=== PATIENT | male | born 1980 | race Caucasian/White ===

== ENCOUNTER 2022-08-31 23:17 | Inpatient (IN) | payer OTHER ==
[~2022-08-31] VITALS: Ht 175.3 cm; Wt 93.3 kg
--- NOTE | 2022-09-01 01:38 | NUR ---
DR COLLADO AT BEDSIDE. AWARE PT HEART RATE IS >100.
[2022-09-01 01:49] LABS: BASOPHILS ABSOLUTE AUTO 0.08 K/mm3 (0.00-0.23); BASOPHILS PERCENT AUTO 1 % (0-2); EOSINOPHILS ABSOLUTE AUTO 0.13 K/mm3 (0.00-0.68); EOSINOPHILS PERCENT AUTO 1 % (0-6); Hematocrit 21.9 % (37.0-53.0); Hemoglobin 6.9 g/dL (13.5-17.5); IMMATURE GRAN ABSOLUTE AUTO 0.08 K/mm3 (0.00-0.10); IMMATURE GRAN PERCENT AUTO 1 % (0-1); LYMPHOCYTES PERCENT AUTO 14 % (21-46); MONOCYTES ABSOLUTE AUTO 1.49 K/mm3 (0.16-1.47); MONOCYTES PERCENT AUTO 14 % (4-13); Mean Corpuscular HGB 28.2 pg (26.0-34.0); Mean Corpuscular HGB Conc 31.5 g/dL (31.5-36.5); Mean Corpuscular Volume 89 fL (80-100); NEUTROPHILS ABSOLUTE AUTO 7.39 K/mm3 (1.96-9.15); NEUTROPHILS PERCENT AUTO 69 % (41-73); Platelet Count 51 K/mm3 (150-400); RDW Coefficient Variation 16.6 % (11.7-14.2); RDW Standard Deviation 53.7 fL (35.1-46.3); Red Blood Cell Count 2.45 M/mm3 (4.30-5.90); White Blood Cell Count 10.67 K/mm3 (4.00-11.30)
[2022-09-01 01:55] LABS: Albumin, Blood 2.9 g/dL (3.4-5.0); Albumin/Globulin Ratio 0.7 (0.8-1.8); Bilirubin, Total 1.6 mg/dL (0.1-1.0); Bun/Creatinine Ratio 21.9 (12.0-20.0); Calcium, Blood 8.8 mg/dL (8.5-10.1); Creatinine, Blood 0.46 mg/dL (0.60-1.20); Globulin, Blood 4.3 g/dL (2.2-4.0); Potassium, Blood 4.8 mmol/L (3.5-5.5); Total Protein, Blood 7.2 g/dL (6.4-8.2)
[2022-09-01 05:13] LABS: Hematocrit 21.2 % (37.0-53.0); Hemoglobin 6.7 g/dL (13.5-17.5)
[2022-09-01 06:06] LABS: Albumin, Blood 2.9 g/dL (3.4-5.0); Albumin/Globulin Ratio 0.7 (0.8-1.8); Bilirubin, Total 1.7 mg/dL (0.1-1.0); Bun/Creatinine Ratio 25.8 (12.0-20.0); Calcium, Blood 8.6 mg/dL (8.5-10.1); Creatinine, Blood 0.43 mg/dL (0.60-1.20); Globulin, Blood 4.3 g/dL (2.2-4.0); Potassium, Blood 5.1 mmol/L (3.5-5.5); Total Protein, Blood 7.2 g/dL (6.4-8.2)
--- NOTE | 2022-09-01 08:00 | NUR ---
Received report from Abiola VEGA. Patient is drowsy and anxious about being in bed. He is alert and able to communicate slowly with some garbled speech, but understandable. He was on 2L O2 while sleeping as he desats, but in on RA and sats upper 90%. Patient has three IV's: 18ga LAC and is infusing Protonix at 10ml, 20ga RFA NS TKO, and 22ga RH infusing Octreotide at 25 ml/hr. He was able to use urinal in time and urinated in bed and we changed linen and cleaned him up.
[2022-09-01 09:24] LABS: Hematocrit 22.8 % (37.0-53.0); Hemoglobin 7.4 g/dL (13.5-17.5)
--- NOTE | 2022-09-01 10:00 | NUR ---
Talked with Dr Rosario and he started to give another PRBC. Patient able to take PO med with sips of water. He has been getting more anxious and Dr Robertson wants to continue Ativan. He has tried getting out of bed more frequently. No changes to Octreotide and Protonix, or NS TKO. He has used urinal and had 600 ml's light edwina urine.
--- NOTE | 2022-09-01 12:00 | NUR ---
Have had to medicate with ativan two more times with little success. He has bed alarm on as he continues to want out of bed. Placed order for Nicotine patch placed on left shoulder. He had another 600 ml's of light edwina in urinal. Going to medicate again with 4 mg ativan for agitation and will call for possible Precedex. No changes to gtt's.
--- NOTE | 2022-09-01 13:30 | NUR ---
Patients PRBC still infusing. He is getting US RUQ. He has been resting since last dose of Ativan. He remains on RA while sleeping. VSS. No changes to gtt's. Charge Nurse talked with Dr Ortega and received order for Precedex low dose.
--- NOTE | 2022-09-01 16:00 | NUR ---
Patient has been resting. 3rd PRBC finished around 1504. Started Precedex at 0.3 mcg/kg/hr, Protonix at 10 ml/hr and Octreotide at 25 ml/hr. He remains on RA while sleeping. Mother went to [facility]. Dr Shannon sánchez to see patient and getb update.
[2022-09-01] MEDS ORDERED: OMEP20ER PO (16:34)
[2022-09-01] MEDS ORDERED: OLAN20 MM (16:34)
[2022-09-01] MEDS ORDERED: EUTHYROX50 MCG PO (16:35)
[2022-09-01] MEDS ORDERED: TRAZ50 PO (16:36)
[2022-09-01] MEDS ORDERED: Buspirone HCl15 MG PO (16:38)
[2022-09-01 17:07] LABS: Hematocrit 24.8 % (37.0-53.0)
--- NOTE | 2022-09-01 17:51 | NUR ---
Patient has been trying to get out of bed for the last hour and has to be re-directed about every 10 minutes until he fwell back to sleep. I have been titrating Precedex up for affect and curretly at 0.5 mcg/kg/hr, Protonix at 10 ml/hr, Octreotide 25 ml/hr. He has been needing help with urinal and has had a total of 1700 ml's out. His three IV's remain patent. He remains on Ra and sats in the mid to upper 90%'s..
--- NOTE | 2022-09-01 20:30 | NUR ---
ASSUMPTION OF CARE NOTE PT IS SEDATED WITH PRECEDEX AND IS RELAXING IN BED. PRECEDEX TITRATED DOWN TO 0.3MCG/KG/HR FROM 0.5 IN ORDER TO SEE IF PT COULD TOLERATE PO MEDS. MAINTAINS SPO2 >94% ON RA WITH NO SOB OR DYSPNEA NOTED. PT RESPONDS TO VERBAL AND TACTILE STIMULI. BP'S ARE A LITTLE SOFT, BUT STABLE WITH MAP REMAINING ABOVE 70. PT IN SR IN THE 80'S. CIWA <8 WITH MINIMAL AGITATION NOTED WHEN PROVIDING CARE. NADN AT THIS TIME.
[2022-09-02 03:55] LABS: BASOPHILS ABSOLUTE AUTO 0.04 K/mm3 (0.00-0.23); BASOPHILS PERCENT AUTO 1 % (0-2); EOSINOPHILS ABSOLUTE AUTO 0.22 K/mm3 (0.00-0.68); EOSINOPHILS PERCENT AUTO 3 % (0-6); Hematocrit 25.1 % (37.0-53.0); IMMATURE GRAN ABSOLUTE AUTO 0.04 K/mm3 (0.00-0.10); IMMATURE GRAN PERCENT AUTO 1 % (0-1); LYMPHOCYTES ABSOLUTE AUTO 1.52 K/mm3 (0.84-5.20); LYMPHOCYTES PERCENT AUTO 23 % (21-46); MONOCYTES ABSOLUTE AUTO 0.77 K/mm3 (0.16-1.47); MONOCYTES PERCENT AUTO 12 % (4-13); Mean Corpuscular HGB 27.8 pg (26.0-34.0); Mean Corpuscular HGB Conc 31.9 g/dL (31.5-36.5); Mean Corpuscular Volume 87 fL (80-100); Mean Platelet Volume 11.4 fL (9.1-12.4); NEUTROPHILS ABSOLUTE AUTO 4.02 K/mm3 (1.96-9.15); NEUTROPHILS PERCENT AUTO 61 % (41-73); RDW Coefficient Variation 17.5 % (11.7-14.2); RDW Standard Deviation 55.1 fL (35.1-46.3); Red Blood Cell Count 2.88 M/mm3 (4.30-5.90); White Blood Cell Count 6.61 K/mm3 (4.00-11.30)
[2022-09-02 03:59] LABS: Platelet Count 44 K/mm3 (150-400)
[2022-09-02 04:11] LABS: Albumin, Blood 2.8 g/dL (3.4-5.0); Albumin/Globulin Ratio 0.7 (0.8-1.8); Bilirubin, Total 1.3 mg/dL (0.1-1.0); Bun/Creatinine Ratio 21.2 (12.0-20.0); Calcium, Blood 8.3 mg/dL (8.5-10.1); Creatinine, Blood 0.47 mg/dL (0.60-1.20); Globulin, Blood 3.9 g/dL (2.2-4.0); Potassium, Blood 3.7 mmol/L (3.5-5.5); Total Protein, Blood 6.7 g/dL (6.4-8.2)
--- NOTE | 2022-09-02 06:28 | NUR ---
SHIFT SUMMARY PT REMAINED LETHARGIC T/O MOST OF THE SHIFT EVEN WITH PRECEDEX OFF AT 2300 ON 09/01/22. RESPONDS TO VERBAL AND PAIN STIMULI. CIWA'S HAVE BEEN CONSISTANTLY <8. PT BECAME MORE ALERT/AGITATED AROUND 0400 WHERE HE RECEIVED LIBRIUM WELL ATIVAN. SEE CIWA ASSESSMENTS FOR MORE DETAILS. BP AND IMPROVED SINCE PRECEDEX HAS BEEN STOPPED AND HR INCREASED TO ST/100'S. PT PLACED ON 2L NC TO MAINTAIN SPO2 >92%, NO SOB OR DYSPNEA NOTED. NO SIGNS OF ACTIVE BLEEDING NOTED T/O THE SHIFT, PLT COUNT WAS LOW WITH AM LABS. NOTIFIED AND ORDERED TO CONTINUE MONITORING THE PT. NADN VSS T/O THE SHIFT
--- NOTE | 2022-09-02 08:00 | NUR ---
Received report from Aron VEGA. Patient was resting at report time and currently has been trying to climb out of bed. He is alert to self and re-directs poorly. His goal is to go home and not stay here. He has three IV's: 22ga RH infusing Protonix at 10 ml/hr, 20ga LAC infusing Octreotide at 25 ml/hr and Precedex started at 0.3 mcg/kg/hr. He used urinal with assist and had 450 ml/hr. He is agitated and wants out of bed, but has hard time jusrt sitting up and is exhausted and tremulous. He has O2 off and sats >90% and will remain off. Mother called and is on her way in.
--- NOTE | 2022-09-02 09:30 | NUR ---
Patient tolerated meds with sip of water. medicated with librium and ativan with little succes and remains climbing out of bed. When in room with other patient bed alrm went off and he was standing at bedside very undstable and had to hold him up. He remains on RA and sats >90%. He re-directs poorly and just keeps trying to get out of bed. Increased Precedex to 0.5 mcg/kg/min. Dr Rosario stated will be by later to assess patient. Patient has showed no signs of bleeding.
--- NOTE | 2022-09-02 11:30 | NUR ---
Patient has had increased agitation and received 18 mg of ativan with one hour, placed in [place] and bilateral soft wrist restraints. I have called Dr Robertson twice and updated her on condition. He still shows no signs of bleeding. Precedex increased to 0.7 mcg/kg/hr at 1054 with little success. He remains on Ra and sats >90%. Patient continues to not re-direct.
--- NOTE | 2022-09-02 13:30 | NUR ---
Awaiting dr to do face to face. Increased Precedex to 1.0, patient continues to putt at restraints but tiring and intermitent resting and awaking and cursing as he is unable to get out of bed. Have re-directed multiple times and boosting as he slides down. Checked skin and circulation. CN and is removed all restraints and changed linen and reboosted. He remains on RA and sats >90%
--- NOTE | 2022-09-02 15:30 | NUR ---
Patient had [address] bilateral upper arms, Right hand IV was slowly working so pulled. His Protonix, Octreotide and Precedex remains at previous settings. Placed condom cath and CN replaced LATASHA PowerGlide as was kinked. Patient still arouses agitated.
--- NOTE | 2022-09-02 18:00 | NUR ---
Patient on RA and sats >90%. Patient is in christiano and bilateral soft wrist restraints. Placed two condom caths and he has pulled loyd as he is still all over bed. He is alert to self only and does not currently re-direct as he is in and out. Dr Rodriguez came by and did face to face and gave permission to titrate precedex tp 1.4 mcg/kg/hr, see nurse notify. He has bilateral upper arm PowerGlide, 20ga-10 in LATASHA and 20ga -8 in PAOLA, dressing have been changes since insertion. He has protonix at 8mg/hr, Octreotide at 50mcg/hr and Precedex at 1.0 mcg/kg/hr. Dr Rosario has been by and has deferred tx until patient stable.
--- NOTE | 2022-09-02 21:27 | NUR ---
CARE ASSUMPTION PT IS LYING IN BED RESTRAINED BY BOT ARCHANA VEST AND SBW RESTRAINTS. PT SLEEPING BUT EASILY AROUSABLE TO SPEECH, PT VERY AGITATED WHEN AWOKEN. PRECEDEX RUNNING PER ORDER. PT DIAPHORETIC. VSS AND O2 SATS >92% ON M AIR.
[2022-09-03 04:19] LABS: BASOPHILS ABSOLUTE AUTO 0.05 K/mm3 (0.00-0.23); BASOPHILS PERCENT AUTO 1 % (0-2); EOSINOPHILS ABSOLUTE AUTO 0.22 K/mm3 (0.00-0.68); EOSINOPHILS PERCENT AUTO 3 % (0-6); Hematocrit 26.7 % (37.0-53.0); Hemoglobin 8.4 g/dL (13.5-17.5); IMMATURE GRAN ABSOLUTE AUTO 0.06 K/mm3 (0.00-0.10); IMMATURE GRAN PERCENT AUTO 1 % (0-1); LYMPHOCYTES ABSOLUTE AUTO 1.49 K/mm3 (0.84-5.20); LYMPHOCYTES PERCENT AUTO 22 % (21-46); MONOCYTES ABSOLUTE AUTO 0.64 K/mm3 (0.16-1.47); MONOCYTES PERCENT AUTO 9 % (4-13); Mean Corpuscular HGB Conc 31.5 g/dL (31.5-36.5); Mean Corpuscular Volume 89 fL (80-100); NEUTROPHILS ABSOLUTE AUTO 4.38 K/mm3 (1.96-9.15); NEUTROPHILS PERCENT AUTO 64 % (41-73); RDW Coefficient Variation 17.7 % (11.7-14.2); RDW Standard Deviation 55.7 fL (35.1-46.3); White Blood Cell Count 6.84 K/mm3 (4.00-11.30)
[2022-09-03 04:23] LABS: Platelet Count 46 K/mm3 (150-400)
[2022-09-03 04:35] LABS: Albumin, Blood 2.8 g/dL (3.4-5.0); Albumin/Globulin Ratio 0.7 (0.8-1.8); Bilirubin, Total 1.1 mg/dL (0.1-1.0); Bun/Creatinine Ratio 15.2 (12.0-20.0); Calcium, Blood 8.5 mg/dL (8.5-10.1); Creatinine, Blood 0.46 mg/dL (0.60-1.20); Globulin, Blood 4.2 g/dL (2.2-4.0)
--- NOTE | 2022-09-03 06:37 | NUR ---
FACILITIES MAINTENANCE ENGINEER SUMMARY PT REMAINS VERY CONFUSED AND AGITATED THIS SHIFT. PT AROUSES W SOUND OR TOUCH TO WHICH HE BEGINS HITTING HIS FIST AGAINST THE BED RAIL AND DEMANDING TO BE RELEASED. PRECEDEX RUNNING THIS SHIFT BEING TITRATED TO 1.2 FRO 1.0 THE PT BECAME MORE AGITATED IN THE MIDDLE OF THE NIGHT. CIWA'S 11-15 THIS SHIFT. BP WNL AND STABLE. TELE SHOWNG SB/SR 55-65 THIS SHIFT. O2 SATS >92% ON RM AIR THIS SHIFT. PT HAD NO S/S OF BLEEDING THIS SHIFT AND HAD NO BM THIS SHIFT. PT AFEBRILE THIS SHIFT. WILL REPORT TO ONCOMING RN.
--- NOTE | 2022-09-03 07:15 | NUR ---
Assumed care of pt at 0700. Report received from Myranda VEGA and Anthony VEGA. Pt responsive to verbal stimulus. Follows commands, although inconsistently. Drowsy. Receiving precedex at 1.2 mcg/kg/hr. Visible beads of sweat on forehead. Pt calm but occasionally pulls against restraints. SpO2 90% or greater.
[2022-09-03 10:48] LABS: Phosphorus, Blood 2.9 mg/dL (2.5-4.9)
--- NOTE | 2022-09-03 11:40 | NUR ---
Dr Nathan in to see patient. Discussed that pt's lungs are sounding coarse. No ativan given today. No major changes to pt's LOC or CIWA. Per Dr Nathan, hold off on using ativan and being titrating down precedex.
--- NOTE | 2022-09-03 15:19 | NUR ---
Dr Nathan in to see patient. Discussed that patient has been off precedex for several hours. Plan to give pt librium and restart home meds
--- NOTE | 2022-09-03 18:58 | NUR ---
SUMMARY Neuro: Pt was off precedex for several hours today and experienced stable withdrawal. Pt alert, oriented to self. Able to answer questions and follow commands. Polite, using "please" and "thank you". This RN performed bedside swallow eval and patient passed without signs of aspiration. Trialed patient without soft wrist restraints, educating on reason for use and conditions that would lead to reapplication. He pulled out an IV, pulled out condom catheter, and removed monitoring equipment within 10 minutes of restraint removal. Pt started to escalate around 1600 despite PO librium, zyprexa, and buspirone. Call placed to Dr Nathan who advised restarting precedex and holding off on ativan for now. Despite restarting precedex and titrating up to max dose, pt was still high CIWA and ativan was given. 4 mg had minimal effect on CIWA. Call placed to Dr Nathan to update. Provider ordered 260 mg phenobarbital and a follow up dose of 130 if needed. Pt was calm immediately after the dose of 260 mg. Musc: Pt moves independently in bed despite restraints and often throws legs over side of bed in attempt to get out of bed independently. Total care for oral care. Cardiac: SB-SR to monitor with rate ranging from 55-85 depending on pt's level of sedation with precedex. BP stable. GI: No BM this shift. Abd large, distended. Hypoactive BT. : Incontinent voids, attempting to manage with condom catheter. Skin: Unremarkable Psychosocial: As mentioned in neuro. Alcohol withdrawal persists. Pt's mother in to see patient this morning before driving back to [employer]. Update provided this AM and then this RN assisted pt to call his mother before resedation.
[2022-09-04 03:59] LABS: BASOPHILS ABSOLUTE AUTO 0.06 K/mm3 (0.00-0.23); BASOPHILS PERCENT AUTO 1 % (0-2); EOSINOPHILS ABSOLUTE AUTO 0.25 K/mm3 (0.00-0.68); EOSINOPHILS PERCENT AUTO 3 % (0-6); Hematocrit 27.7 % (37.0-53.0); Hemoglobin 8.4 g/dL (13.5-17.5); IMMATURE GRAN ABSOLUTE AUTO 0.08 K/mm3 (0.00-0.10); IMMATURE GRAN PERCENT AUTO 1 % (0-1); LYMPHOCYTES ABSOLUTE AUTO 1.53 K/mm3 (0.84-5.20); LYMPHOCYTES PERCENT AUTO 20 % (21-46); MONOCYTES ABSOLUTE AUTO 0.66 K/mm3 (0.16-1.47); MONOCYTES PERCENT AUTO 9 % (4-13); Mean Corpuscular HGB 27.8 pg (26.0-34.0); Mean Corpuscular HGB Conc 30.3 g/dL (31.5-36.5); Mean Corpuscular Volume 92 fL (80-100); NEUTROPHILS ABSOLUTE AUTO 5.13 K/mm3 (1.96-9.15); NEUTROPHILS PERCENT AUTO 67 % (41-73); NRBC ABSOLUTE 0.02 K/mm3 (0.00-0.02); NRBC Auto 0.3 /100 WBC (0.0-0.2); RDW Coefficient Variation 18.8 % (11.7-14.2); RDW Standard Deviation 57.1 fL (35.1-46.3); Red Blood Cell Count 3.02 M/mm3 (4.30-5.90); White Blood Cell Count 7.71 K/mm3 (4.00-11.30)
[2022-09-04 04:07] LABS: Mean Platelet Volume 13.3 fL (9.1-12.4); Platelet Count 49 K/mm3 (150-400)
--- NOTE | 2022-09-04 06:35 | NUR ---
SHIFT SUMMARY: PT. DID WELL OVERNIGHT, ALL VS WERE WNL THROUGHOUT THE NIGHT AND PT. SEEMED TO BE RESTING WELL. PT. IS STILL ON 1.4 OF PRECEDEX BUT IS EASY TO ROUSE AND BECAME MUCH MORE ORIENTED THIS MORNING. PT. ABLE TO HAVE A SIMPLE CONVERSATION AND IS COOPERATIVE WITH CARE. PT. RESTING WITH CALL LIGHT IN REACH.
--- NOTE | 2022-09-04 10:45 | NUR ---
Assumed care of pt at 0700. Report received from Geoffrey VEGA. Pt receiving precedex at 1.4 mcg/kg/hr. Responsive to verbal stimulus. SpO2 90% or greater with room air. SB per monitor. BP stable. CIWA stable, initially. Pt's mother in to see patient approx 0900. Pt got agitated and started demanding that his mother take him home and undo his restraints. Pt's mother explaining to patient, with high emotion, that these things cannot be done. Educated pt's mother that pt is now agitated and needs reduction of stimulation. Discussed break from sedation yesterday, as well as removal of restraints and pt's resulting behavior, which was removing IV, monitoring equipment, and attempting to get out of bed. Pt's mother verbalized understanding.
--- NOTE | 2022-09-04 18:30 | NUR ---
SUMMAR Neuro: Pt is currently resting in bed, responsive to verbal stimulus. Precedex 1.4 mcg/kg/hr. Pt escalated again in the absence of precedex despite premedication with librium and giving 6 mg IV push ativan. Called hospitalist team for treatment guidance. Jo Nathan, Marcelo, and Jeb in to see patient. 260 mg phenobarbital given. Pt has been calm since. Musc: Lifted patient to chair. Pt tolerated well, but became very restless and engaging in unsafe behavior, trying to stand up and roll out of chair despite restraints. Resp: SpO2 90% or greater RA. Lungs clear t/o. Cardiac: SR per monitor. BP stable. GI: Pt able to safely have sips of water today. No BM. Lactulose enema given through rectal tube. : Incontinent of urine. Condom catheter came off. Have been managing voids with attends and wraps. Skin: Unremarkable. Psychosocial: Update given to mom by this RN and hospitalist team.
--- NOTE | 2022-09-04 20:00 | NUR ---
ASSUMED CARE OF PT AT 1915. REPORT RECEIVED AT BEDSIDE. PT PRESENTS IN BED. PRECEDEX FOR ETOH WITHDRAWALS. PT CURRENTLY RESTING. NO DISTRESS. DIGNISHIELD IN PLACE WITH PALE YELLOW COLORED DRAINAGE. NO STOOL NOTED. WILL REVIEW CHART AND PLAN OF CARE FOR THIS PT.
--- NOTE | 2022-09-04 22:57 | NUR ---
PT HAS BEEN INCONTINENT TO URINE. DOES NOT AWAKEN FULLY TO SAFELY SWALLOW PM MEDS. VEST RESTRAINT AND WRIST RESTRAINTS IN PLACE FOR PT SAFETY. WILL MONITOR FOR ABILITY TO SAFELY WEAN DOWN PRECEDEX EVEN THOUGH PT NOT TAKING PO AT THIS TIME.
--- NOTE | 2022-09-05 01:55 | NUR ---
PT MORE AWAKE AFTER LACTULOSE ENEMA COMPLETED. CONTINUES ON 1.4 MCG'S/KG PRECEDEX. PT STILL REMAINS UNABLE TO SAFELY SWALLOW MEDS. WILL MONITOR CLOSE FOR FURTHER CIWA RELATED INTERVENTINOS.
[2022-09-05 05:06] LABS: BASOPHILS ABSOLUTE AUTO 0.06 K/mm3 (0.00-0.23); BASOPHILS PERCENT AUTO 1 % (0-2); EOSINOPHILS ABSOLUTE AUTO 0.19 K/mm3 (0.00-0.68); EOSINOPHILS PERCENT AUTO 3 % (0-6); Hematocrit 28.9 % (37.0-53.0); Hemoglobin 8.6 g/dL (13.5-17.5); IMMATURE GRAN ABSOLUTE AUTO 0.05 K/mm3 (0.00-0.10); IMMATURE GRAN PERCENT AUTO 1 % (0-1); LYMPHOCYTES PERCENT AUTO 21 % (21-46); MONOCYTES ABSOLUTE AUTO 0.78 K/mm3 (0.16-1.47); MONOCYTES PERCENT AUTO 11 % (4-13); Mean Corpuscular HGB 27.7 pg (26.0-34.0); Mean Corpuscular HGB Conc 29.8 g/dL (31.5-36.5); Mean Corpuscular Volume 93 fL (80-100); NEUTROPHILS PERCENT AUTO 65 % (41-73); RDW Coefficient Variation 19.1 % (11.7-14.2); Red Blood Cell Count 3.11 M/mm3 (4.30-5.90); White Blood Cell Count 7.28 K/mm3 (4.00-11.30)
[2022-09-05 05:19] LABS: Mean Platelet Volume 13.6 fL (9.1-12.4); Platelet Count 49 K/mm3 (150-400)
[2022-09-05 05:38] LABS: Magnesium, Blood 1.7 mg/dL (1.6-2.4)
[2022-09-05 05:39] LABS: Albumin, Blood 2.6 g/dL (3.4-5.0); Anion Gap 6 mmol/L (6-16); Blood Urea Nitrogen 10 mg/dL (8-24); Bun/Creatinine Ratio 21.1 (12.0-20.0); CO2, Blood 25 mmol/L (21-32); Calcium, Blood 8.2 mg/dL (8.5-10.1); Chloride, Blood 110 mmol/L (98-108); Creatinine, Blood 0.48 mg/dL (0.60-1.20); Glomerular Filtration Rate 134 (60-); Glucose, Blood 311 mg/dL (70-99); Phosphorus, Blood 3.4 mg/dL (2.5-4.9); Potassium, Blood 3.6 mmol/L (3.5-5.5); Sodium, Blood 141 mmol/L (136-145)
--- NOTE | 2022-09-05 07:22 | NUR ---
Assumed care of pt at 0700. Report received from Sudhakar VEGA. Assisted with prescribed 0600 lactulose enema. Rectal tube in place for management of enema and drainage. Drainage in collection bag is identical in color to medication. Occasional flakes of stool present in tubing. SpO2 90% or greater with room air. SR per monitor, BP stable. Precedex initially at 1.4 mcg/kg/hr. Decreased to 1 mcg/kg/hr. Pt is awake, disoriented, calling out, but otherwise calm. Attends in place for management of incontinence.
--- NOTE | 2022-09-05 08:30 | NUR ---
Precedex 1 mcg/kg/hr. Patient is awake and attempting to get out of bed, constantly pulling against restraints. Patient is disoriented, does not know current location. Diaphoretic with visible beads of sweat on forehead. Anxious and agitated. Unclear if pt has nausea/headache/hallucinations. Patient is not redirectable or following instructions from staff. Required four staff members to fix disrupted linens beneath patient. Call placed to Dr Robertson to assess patient. Dr Nathan also in to see patient. Providers state concern that pt has completed alcohol withdrawals and current presentation is due to pt's mental health diagnoses. Plan to manage pt's anxiety with precedex. Providers will order long acting benzodiazepine PO. Providers also order fluid bolus of LR due to fluid balance concerns since patient has likely lost a lot of fluid from diaphoresis. Providers also order to remove bilateral wrist restraints as they are a source of agitation for the patient. Discussed safety concerns as pt has demonstrated that he will pull and remove monitoring equipment, clothes, etc. Discussed that it would not be a safe choice to remove telemetry or blood pressure cuff for this patient since he's on precedex. Providers state perceived benefit of removing wrist restraints exceeds risk.
--- NOTE | 2022-09-05 10:00 | NUR ---
Providers in to see patient again. Pt is acutely agitated and repeatedly pulling torso against vest restraint to sit up despite redirection and instruction from his mother. Per provider, continue with current plan of care. Rectal tube removed as pt is not passing bowel movements and goal is to have pt taking PO lactulose.
--- NOTE | 2022-09-05 12:30 | NUR ---
Patient voided urine. Bedbath done, linens changed. Pt sleeping afterwards. Provider again rounds on patient.
--- NOTE | 2022-09-05 13:48 | NUR ---
Discussed pt's mental status with charge nurse and deterioration compared to this RN's assessment on previous day shifts. Pt is currently agitated and pulling against vest restraint. Often trying to get out of bed with eyes closed and repeatedly yelling profanities. Decision made to further decrease precedex to 0.7 mcg/kg/hr. During previous day shifts, in absence of precedex, pt was cooperative with care, able to follow commands, and safely have PO intake for a few hours
--- NOTE | 2022-09-05 15:42 | NUR ---
Precedex at 0.7 mcg/kg/min. Pt's speech is more clear. Pt is still anxious, but somewhat redirectable and follows some directions. Still attempting to get out of bed and yelling out profanities repetitively. Able to communicate requests, asking to repositioning and calling his mom.
--- NOTE | 2022-09-05 17:43 | NUR ---
SUMMARY Neuro: Pt alert. LOC waxes and wanes. Currently constantly attempting to sit up in bed despite vest restraint. Pt also grabbing outside of side rail, as if to look for side rail release button. Not following directions. Not redirectable. Removed extension set from powerglide, causing blood to ooze from site. Dressing was also removed. Site cleaned with CHG. New extension set and dressing placed. For aforemention reasons, wrist restraints reapplied for patient safety. Pt currently on 0.7 mcg/kg/hr. Musc: Repositioning performed Q2H for patient, although pt essentially independently repositions with his attempts to get out of bed. Total care for toileting and oral care. Resp: Lungs coarse t/o. SpO2 90% or greater with room air. Cardiac: SR per monitor. BP stable GI: Rectal tube removed due to lack of bowel movement despite several lactulose enemas. PO lactulose provided when pt is alert enough for PO intake. : Incontinent of urine. Attends for incontinence management as condom catheters have been ineffective for this patient. Saturates attends and underlying bedding approx once every 1h 30m. Offered patient urinal approx every 45 minutes this afternoon, however he was only able to void into urinal once and it was only 25 mL. Skin: Barrier cream to perineal skin. Irritation from incontinence Psychosocial: Waxes and wanes. Assisted pt to call his mom after her departure.
--- NOTE | 2022-09-05 19:05 | NUR ---
ASSUMED CARE OF PT AT 1900. REPORT RECEIVED AT BEDSIDE. PT PRESENTS IN BED. ACTIVELY TRYING TO GET AHOLD OF LINES. ARCHANA VEST AND WRIST RESTRAINTS IN USE SECONDARY TO PT PULLING OUT IV'S AND PULLING AT OTHER LINES AND TUBES. PT ON CAMERA MONITORING TO HELP PREVENT PT'S SELF HARM. WILL REVIEW CHART AND PLAN OF CARE FOR THIS PT.
--- NOTE | 2022-09-05 23:03 | NUR ---
PT WAS ABLE TO TAKE HIS HS MEDICATIONS PO WITH SOME COACHING. DID SPIT OUT HIS PROBIOTIC BUT EVENTUALLY DID SWALLOW PILL. CONDOM CATHETER PLACED SECONDARY TO FREQUENTY INCONTINENCE WITH BED CHANGES. PT CALLS OUT FOR HIS "MOM" AND ALSO STATES HE WANTS TO GO OUTSIDE TO SMOKE. IS INFORMED OF [facility] BEING A NON-SMOKING CAMPUS.
--- NOTE | 2022-09-05 23:07 | NUR ---
OF INTERESTING NOTE: PT WAS ABLE TO MOVE HIS HIPS TO EDGE OF BED, AND GET AHOLD OF CONDOM CATHETER TO PULL IT OFF. WILL CONTINUE TO DO FREQUENT INCONTINENCE CHECKS SECONDARY TO PT'S ABILITY TO PULL AT CATHETER.
--- NOTE | 2022-09-06 03:40 | NUR ---
PT HAS BEEN INCONTINENT TO URINE AT APPROX Q 1-[address] CONDOM CATH - PT PULLS CATH OFF. PT PROVIDED URINAL, AND IS UNABLE TO URINATE. HAVE MEDICATED PT WITH 5 MG HALDOL IM RIGHT DELTOID. NO REAL NOTEABLE IMPROVEMENTS.
[2022-09-06 05:06] LABS: BASOPHILS ABSOLUTE AUTO 0.05 K/mm3 (0.00-0.23); BASOPHILS PERCENT AUTO 1 % (0-2); EOSINOPHILS ABSOLUTE AUTO 0.13 K/mm3 (0.00-0.68); EOSINOPHILS PERCENT AUTO 2 % (0-6); Hematocrit 25.7 % (37.0-53.0); Hemoglobin 8.1 g/dL (13.5-17.5); IMMATURE GRAN ABSOLUTE AUTO 0.05 K/mm3 (0.00-0.10); IMMATURE GRAN PERCENT AUTO 1 % (0-1); LYMPHOCYTES ABSOLUTE AUTO 1.35 K/mm3 (0.84-5.20); LYMPHOCYTES PERCENT AUTO 16 % (21-46); MONOCYTES ABSOLUTE AUTO 0.92 K/mm3 (0.16-1.47); MONOCYTES PERCENT AUTO 11 % (4-13); Mean Corpuscular HGB 28.2 pg (26.0-34.0); Mean Corpuscular HGB Conc 31.5 g/dL (31.5-36.5); Mean Corpuscular Volume 90 fL (80-100); NEUTROPHILS ABSOLUTE AUTO 6.07 K/mm3 (1.96-9.15); NEUTROPHILS PERCENT AUTO 71 % (41-73); RDW Coefficient Variation 18.6 % (11.7-14.2); RDW Standard Deviation 57.1 fL (35.1-46.3); Red Blood Cell Count 2.87 M/mm3 (4.30-5.90); White Blood Cell Count 8.57 K/mm3 (4.00-11.30)
[2022-09-06 05:09] LABS: Platelet Count 46 K/mm3 (150-400)
--- NOTE | 2022-09-06 05:29 | NUR ---
PT CALLS OUT TO HIS MOTHER FREQUENTLY THIS NIGHT. EXPLAINED TO PT THAT HIS MOTHER WAS NOT PRESENT. PT VOICED THAT HE WAS UNAWARE WHERE HE IS. WANTING TO SMOKE. INCONTINENT TO URINE MULTIPLE TIMES THIS SHIFT. HAS BEEN CURSING AND YELLING OUT TONIGHT. PT REMAINS IN ARCHANA VEST, AND SOFT WRIST RESTRAINTS FOR HIS SAFETY. CONTINUES ON PRECEDEX AT 0.7MCG'S. HALDOL 5 MG IM GIVEN WITHOUT MUCH AFFECT. WILL CONTINUE TO MONITOR PT, AND WILL REPORT OFF TO ONCOMING RN.
--- NOTE | 2022-09-06 07:30 | NUR ---
ASSUMED CARE OF JULIA AT 0700, HE IS UNABLE TO SAY WHERE HE IS OR WHY HE IS HERE. HE IS ON PRECEDEX @ 0.7MCG/KG, OCTREOTIDE GTT, CLINIMIX IV INFUSION. HE IS RESTRAINED WITH VEST AND WRIST FOR SAFETY, HE IS ABLE TO HELP US TURN HIM TO CHANGE ATTENDS. SKIN IS RED/BLANCHABLE ON SACRUM, CLEANED AND NEW ATTENDS PLACED. ATTEMPTS AT REORIENTATION. ABD LG ROUND SOFT, NON TENDER. PG TO BILAT UPPER ARMS. CONTINUE ATTEMPTS TO REORIENT.
--- NOTE | 2022-09-06 08:30 | NUR ---
PT ABLE TO CONVERSE WITH , TAKE IN SOME NUTRITION, BE REASONABLE AND ABLE TO FOLLOW SIMPLE COMMANDS. ATTEMPTS TO WEAN OFF PRECEDEX PER .
--- NOTE | 2022-09-06 10:00 | NUR ---
PT VERY DISTRESSED, WANTS OUT OF RESTRAINTS, WANTS TO GO HOME, WANTS HIS MOM. CANNOT RECALL WHERE HE IS OR WHY HE IS HERE. ATTEMPTS AT REORIENTATION, HE BECOMES UPSET. HE IS UNABLE TO FOCUS HIS ATTENTION ON ONE OBJECT. CONVERSATION ABOUT WHAT HE IS DOING HERE AND WHY, HE IS ABLE TO REMEMBER A FEW MOMENTS LATER.
--- NOTE | 2022-09-06 11:20 | NUR ---
TITRATING THE PRECEDEX OFF PER DR. RAMOS. PT VERY RESTLESS AND ANXIOUS. ASSISTED HIM TO THE CHAIR. MOM IS HERE. HE IS WANTING TO GO HOME AND MOM WANTS TO TAKE HIM. ASKED TO SPEAK WITH THE DOCTOR. NOTIFIED, AND HERE TO TALK WITH THEM.
--- NOTE | 2022-09-06 12:00 | NUR ---
AFTER DISCUSSION WITH THE DOCTOR'S, MOM DECIDED TO TAKE PATIENT HOME. SHE SAID SHE WOULD BE GLAD TO SIGN THE PAPERWORK FOR TAKING HIM AGAINST MEDICAL ADVICE. IV'S REMOVED, PT ASSISTED TO DRESSING, ASSISTED TO WHEELCHAIR AND MOM WHEELED HIM OUT. THEY WERE BOTH EXPLAINED THE RISKS VS. BENEFITS OF GOING HOME AT THIS TIME.
== END 2022-09-06 11:55 | disposition left against medical advice (07) | DRG 432 ==
LOC: ICUW 23:17 → EDSEX 09-01 00:38 → ICUW 09-01 00:38
PROVIDERS: Family Medicine; Internal Medicine; Student in an Organized Health Care Education/Training Program; ADMIT Internal Medicine
PROC: 30233N1 Transfusion of Nonautologous Red Blood Cells into Peripheral Vein, Percutaneous Approach (ICD-10-PCS; principal; 2022-09-01)
DX: K70.30 Alcoholic cirrhosis of liver without ascites (principal); G92.8 Other toxic encephalopathy; K22.6 Gastro-esophageal laceration-hemorrhage syndrome; I85.11 Secondary esophageal varices with bleeding; E72.20 Disorder of urea cycle metabolism, unspecified; F10.131 Alcohol abuse with withdrawal delirium; R44.3 Hallucinations, unspecified; K92.0 Hematemesis; E11.65 Type 2 diabetes mellitus with hyperglycemia; E03.9 Hypothyroidism, unspecified; F39 Unspecified mood [affective] disorder; E11.51 Type 2 diabetes mellitus with diabetic peripheral angiopathy without gangrene; F41.9 Anxiety disorder, unspecified; F20.9 Schizophrenia, unspecified; F31.9 Bipolar disorder, unspecified; K27.9 Peptic ulcer, site unspecified, unspecified as acute or chronic, without hemorrhage or perforation; D69.6 Thrombocytopenia, unspecified; F17.210 Nicotine dependence, cigarettes, uncomplicated; Z79.899 Other long term (current) drug therapy; Z79.4 Long term (current) use of insulin; Z79.2 Long term (current) use of antibiotics
CPT/HCPCS: 36415; 36430; 76705; 80053; 80069; 82105; 82140; 82947; 83735; 84100; 85014; 85018; 85025; 86850; 86900; 86901; 86923; 94762; A9270; C1751; C9113; J0696; J1630; J1815; J2060; J2354; J2405; J2560; J3411; J7050; J7120; P9016

== ENCOUNTER 2023-02-03 01:59 | Inpatient (IN) | payer OTHER ==
[2023-02-03] VITALS (70 sets, daily range): BP systolic 85–161; BP diastolic 53–135
[~2023-02-03] VITALS: Ht 177.8 cm; Wt 84.1 kg
[~2023-02-03 01:59] MED LIST: Buspirone HCl15 MG PO; EUTHYROX50 MCG PO; OLAN20 PO; OMEP20ER PO; TRAZ50 PO
[2023-02-03 06:15] LABS: BASOPHILS ABSOLUTE AUTO 0.16 K/mm3 (0.00-0.23); BASOPHILS PERCENT AUTO 0 % (0-2); EOSINOPHILS ABSOLUTE AUTO 0.02 K/mm3 (0.00-0.68); EOSINOPHILS PERCENT AUTO 0 % (0-6); Hematocrit 38.8 % (37.0-53.0); Hemoglobin 12.4 g/dL (13.5-17.5); IMMATURE GRAN ABSOLUTE AUTO 0.86 K/mm3 (0.00-0.10); IMMATURE GRAN PERCENT AUTO 2 % (0-1); LYMPHOCYTES ABSOLUTE AUTO 3.34 K/mm3 (0.84-5.20); LYMPHOCYTES PERCENT AUTO 8 % (21-46); MONOCYTES ABSOLUTE AUTO 4.19 K/mm3 (0.16-1.47); MONOCYTES PERCENT AUTO 10 % (4-13); Mean Corpuscular HGB 28.2 pg (26.0-34.0); Mean Corpuscular Volume 88 fL (80-100); NEUTROPHILS ABSOLUTE AUTO 35.15 K/mm3 (1.96-9.15); NEUTROPHILS PERCENT AUTO 80 % (41-73); NRBC ABSOLUTE 0.04 K/mm3 (0.00-0.02); NRBC Auto 0.1 /100 WBC (0.0-0.2); Platelet Count 153 K/mm3 (150-400); RDW Coefficient Variation 15.6 % (11.7-14.2); White Blood Cell Count 43.72 K/mm3 (4.00-11.30)
[2023-02-03 06:16] LABS: Mean Platelet Volume 13.1 fL (9.1-12.4)
[2023-02-03 06:35] LABS: Albumin, Blood 2.8 g/dL (3.4-5.0); Albumin/Globulin Ratio 0.8 (0.8-1.8); Bilirubin, Total 1.1 mg/dL (0.1-1.0); Bun/Creatinine Ratio 24.4 (12.0-20.0); Calcium, Blood 8.2 mg/dL (8.5-10.1); Creatinine, Blood 0.94 mg/dL (0.60-1.20); Globulin, Blood 3.7 g/dL (2.2-4.0); Potassium, Blood 5.8 mmol/L (3.5-5.5); Total Protein, Blood 6.5 g/dL (6.4-8.2)
[2023-02-03 06:38] LABS: International Normalized Ratio 1.46
[2023-02-03 07:16] LABS: PCO2 Arterial 37.4 mmHg (35-45); PO2 Arterial 97.4 mmHg (80-100); pH Blood Arterial 7.19 (7.35-7.45)
--- NOTE | 2023-02-03 07:36 | NUR ---
ADMISSION NOTE PT ARRIVED TO ICU 6 AT APPX 0545 VIA EMS FROM [facility]. PT IS INTUBATED W/7.5 ETT, XRAY OBTAINED TO VERIFY PROPER PLACEMENT. PT HAD A UNIT OF PRBC INFUSING, WHICH WAS HIS 8TH UNIT SINCE HIS ARRIVAL TO THE ER IN [facility]. HE ALSO WAS GIVEN 2FFP WHILE STILL IN [facility]. PT WAS TRANSFERRED HERE R/T BLEEDING FROM PRESUMED ESOPHAGEAL VARICIES, WHICH HE HAS A HISTORY OF PRIOR TREATMENT W/BANDING. NO FAMILY IS AVAILABLE AT THIS TIME SO IT IS UNKNOWN WHEN PT HAD LAST DRINK. PT HAD VASOPRESSIN INFUSING AT 0.03UNITS/MIN. IT WAS ORDERED AND STARTED HERE AT 0.04UNITS/MIN. VERSED WAS INFUSING ON ARRIVAL AND HAS BEEN REORDERED HERE WELL IF NEEDED. HE ALSO HAD AN OCTREOTIDE DRIP INFUSING WHICH WAS CONTINUED. HE HAS A CORDIS IN HIS RIGHT FEMORAL WHICH WAS PLACED IN [facility] AND REPORTED TO HAVE BEEN PLACED NOT STERILE. CAMACHO CATHETER WAS IN PLACE UPON PT ARRIVAL WELL AND IS DRAINING YELLOW URINE. PT HAS AN 18G IV IN HIS LEFT AND RIGHT AC. PT WAS GIVEN PARALYTIC ENROUTE AND IS UNRESPONSIVE AT THIS TIME. HE WAS GIVEN 1.5L NS BOLUS UPON ARRIVAL TO ICU HERE. HE HAS AN OROGASTRIC TUBE THAT WAS PLACED AT THE PRIOR FACILITY. IT WAS PLACED TO ILWS PER MD ORDER. IT IS DRAINING DARK RED BLOOD W/ SOME CLOTS,LESS THAN 100CC IN CANISTER AT THIS TIME. PT LUNG SOUNDS ARE RHONCHOROUS BILATERALLY, OXYGEN SAT HAVE BEEN GREATER THAN 95% SINCE HIS ARRIVAL TO OUR ICU. HE IS ST ON THE SODA COLUMN OPERATOR. HIS LOWER EXTREMITIES ARE DISCOLORED, BILATERAL PEDAL PULSES PRESENT. ABDOMEN HAS SOME MOTTLING NOTED WELL. I WAS GIVEN REPORT FROM KALE FROM [facility], AND I HAVE REPORTED OFF TO DOLLY VEGA.DR MELO HAS BEEN AT PT BEDSIDE. LABS WERE DRAWN AND SENT. IN LINE SUCTIONING WAS DARK RED BLOOD AND BLOOD WAS SUCTIONED FROM HIS MOUTH WELL.
[2023-02-03 07:40] LABS: Mean Platelet Volume 12.7 fL (9.1-12.4); Platelet Count 137 K/mm3 (150-400)
[2023-02-03 07:47] LABS: Hematocrit 39.6 % (37.0-53.0); Hemoglobin 12.9 g/dL (13.5-17.5)
[2023-02-03 07:48] LABS: Calcium, Blood 7.8 mg/dL (8.5-10.1); Magnesium, Blood 1.3 mg/dL (1.6-2.4)
--- NOTE | 2023-02-03 08:03 | NUR ---
ASSUMED CARE BEDSIDE REPORT RECIEVED. PT INTUBATED AND INITIALLY NOT SEDATED. NO PURPOSFUL MOVEMENTS NOTED, BUT PT ASYNCHRONOUS WITH THE VENT. DARK BLOOD WITH CLOTS NOTED FROM OGT. BRIGHT RED NOTED FROM ETT SUCTION. CAMACHO IN PLACE. CORDIS TO R FEMORAL SITE IN PLACE. DAY SURGERY TEAM AT BEDSIDE FOR EGD AT THIS TIME. WILL CONTINUE TO MONITOR.
[2023-02-03 08:09] LABS: International Normalized Ratio 1.42; Prothrombin Time Results 14.6 Sec (9.7-11.5)
[2023-02-03 08:51] LABS: Source, Urine Foley catheter
[2023-02-03 08:57] LABS: Appearance, Urine Clear (Clear); Bilirubin, Urine Neg (Neg); Blood, Urine Neg (Neg); Color, Urine Yellow (P-Yellow); Glucose Qualitative, Urine 4+ (Neg); Ketones, Urine 3+ (Neg); Leukocyte Esterase, Urine Neg (Neg); Nitrite, Urine Neg (Neg); Protein, Urine 1+ (Neg); Urobilinogen, Urine NORM (Normal)
--- NOTE | 2023-02-03 09:02 | NUR ---
02/03/23 0902 [facility] NURSE SEDATION, PT INTUBATED. MONITOR INTACT WITH CONTINUOUS PULSE OXIMETRY, CONTINUOUS END TITAL CO2, AND INTERMITTENT BLOOD PRESSURE. 3-LEAD EKG REVIEWED WITH PHYSICIAN PRIOR TO START OF PROCEDURE.
--- NOTE | 2023-02-03 10:29 | NUR ---
FEMORAL CENTRAL LINE (PLACED IN [facility] PRIOR TO TRANSFER) DCD AT THIS TIME. PULLED ONCE PICC LINE WAS OBTAINED. NO BRUISING OR SWELLING NOTED. SITE WNL. CLEAR OCCLUSIVE DRESSING PLACED.
[2023-02-03 12:37] LABS: Albumin, Blood 2.7 g/dL (3.4-5.0); Albumin/Globulin Ratio 0.7 (0.8-1.8); Bun/Creatinine Ratio 32.6 (12.0-20.0); Creatinine, Blood 0.74 mg/dL (0.60-1.20); Globulin, Blood 3.7 g/dL (2.2-4.0); Potassium, Blood 4.1 mmol/L (3.5-5.5); Total Protein, Blood 6.4 g/dL (6.4-8.2)
[2023-02-03 12:44] LABS: BASOPHILS ABSOLUTE AUTO 0.14 K/mm3 (0.00-0.23); BASOPHILS PERCENT AUTO 0 % (0-2); EOSINOPHILS ABSOLUTE AUTO 0.02 K/mm3 (0.00-0.68); EOSINOPHILS PERCENT AUTO 0 % (0-6); Hematocrit 37.3 % (37.0-53.0); Hemoglobin 12.7 g/dL (13.5-17.5); IMMATURE GRAN ABSOLUTE AUTO 0.52 K/mm3 (0.00-0.10); IMMATURE GRAN PERCENT AUTO 1 % (0-1); LYMPHOCYTES ABSOLUTE AUTO 2.87 K/mm3 (0.84-5.20); LYMPHOCYTES PERCENT AUTO 7 % (21-46); MONOCYTES ABSOLUTE AUTO 2.87 K/mm3 (0.16-1.47); MONOCYTES PERCENT AUTO 7 % (4-13); Mean Corpuscular HGB 28.6 pg (26.0-34.0); Mean Corpuscular Volume 84 fL (80-100); NEUTROPHILS ABSOLUTE AUTO 37.26 K/mm3 (1.96-9.15); NEUTROPHILS PERCENT AUTO 85 % (41-73); NRBC ABSOLUTE 0.02 K/mm3 (0.00-0.02); Platelet Count 107 K/mm3 (150-400); RDW Coefficient Variation 15.3 % (11.7-14.2); RDW Standard Deviation 46.1 fL (35.1-46.3); Red Blood Cell Count 4.44 M/mm3 (4.30-5.90); White Blood Cell Count 43.68 K/mm3 (4.00-11.30)
[2023-02-03 12:58] LABS: Calcium, Blood 10.1 mg/dL (8.5-10.1)
--- NOTE | 2023-02-03 13:11 | NUR ---
EXTUBATION PT THRASHING IN BED WITH SEDATION OFF SINCE THIS MORNING. DR WELLS NOTIFED, RECIEVED ORDERS TO EXTUBATE. RT NERY AT BEDSIDE, PT EXTUBATED AT 1150 AND PLACED ON 3L O2 NC. SPO2 >92%. PT WITH STRONG COUGH EFFORT. PT CONTINUALLY ATTEMPTING TO PULL AT LINES/TUBES AND CLIMB OUT OF BED. PT NOT REDIRECTABLE. PT MED WITH ATIVAN PER EMAR. DR WELLS NOTIFIED AND ORDERS RECIEVED TO START PRECEDEX. PT THEN PROCEEDED TO HAVE 3 EXTRA LARGE INCONTINENT BLACK, LOOSE BM'S. PT HYPERTENSIVE, ORDERS RECIEVED TO DC VASOPRESSIN. WILL CONTINUE TO MONITOR.
[2023-02-03 17:48] LABS: Hematocrit 31.4 % (37.0-53.0); Hemoglobin 10.8 g/dL (13.5-17.5)
--- NOTE | 2023-02-03 17:55 | NUR ---
SHIFT SUMMARY PT LETHARGIC AND IMPULSIVE THIS AFTERNOON S/P EXTUBATION. PT CONTINUES TO NOT BE REDIRECTABLE. SPEECH IS MUMBLED AND NONSENSICAL. PT WITH TREMORS WITH MOVEMENT. PT ATTEMPTS TO PULL AT LINES/TUBES. PT SEDATED WITH PRECEDEX AT 0.7 MCG/KG/HR AND ATIVAN PRN. PROTONIX INFUSING AT 10 ML/HR, SANDOSTATIN AT 50 MCG/HR, AND BICARB AT 100 ML/HR. PICC TO LATASHA PLACED THIS MORNING. PT ON 2L O2 NC. VITAL SIGNS REMAIN STABLE. CAMACHO REMAINS IN PLACE WITH YELLOW OUTPUT NOTED. PT WITH 3 EXTRA LARGE BLACK LOOSE BM'S THIS SHIFT. NO FAMILY AT BEDSIDE. WILL CONTINUE TO MONITOR AND REPORT OFF TO ONCOMING RN.
[2023-02-03 19:06] LABS: U Amphetamine Screen Not Detected; U Barbituate Screen Not Detected; U Benzodiazapine Screen DETECTED; U Buprenorphine Screen Not Detected; U Cannabinoids Screen DETECTED; U Cocaine Screen Not Detected; U Methadone Screen Not Detected; U Methamphetamine Screen Not Detected; U Opiates Screen Not Detected; U Oxycodone Screen Not Detected; U Phencyclidine Screen Not Detected; U Propoxyphene Screen Not Detected
--- NOTE | 2023-02-03 20:43 | NUR ---
ASSUMED CARE AT 1900 PATIENT IS SEDATED ON PRECEDEX, AGITATED PER DAYSHIFT. RESPONDS TOUCH, OPENS EYES AND MOANS. CONFUSED AND UNABLE TO FOLLOW COMMANDS. 02 SATS 93% ON 3L NC. LS COARSE, SOME BLOODY SPUTUM. HR SR 90s, BP STABLE. CAMACHO PATENT AND DRAINING TO GRAVITY. PATIENT REPOSITIONED. CALL LIGHT IN REACH
[2023-02-04] VITALS (95 sets, daily range): BP systolic 93–151; BP diastolic 45–87
[2023-02-04 00:46] LABS: Hemoglobin 9.9 g/dL (13.5-17.5)
--- NOTE | 2023-02-04 06:33 | NUR ---
SHIFT SUMMARY PATIENT IS LETHARGIC, SEDATED ON PRECEDEX. PATIENT WAKES UP AT TIMES, ATTEMPTS TO GET OUT OF BED UNABLE TO FOLLOW COMMANDS, PRN MEDICATION GIVEN FOR ANXIETY, SEE EMAR. 02 SATS 94% ON 3L VIA NC, LS COARSE. ORAL CARE DONE, SMALL AMOUNT OF BLOODY SPUTUM. HR SR 90s, BP STABLE. CAMACHO CATHETER REMOVED AND CONDOM CATH PLACED. ONE SMALL BM, LOOSE DARK TARRY. BED ALARM ON
[2023-02-04 06:35] LABS: BASOPHILS ABSOLUTE AUTO 0.04 K/mm3 (0.00-0.23); BASOPHILS PERCENT AUTO 0 % (0-2); EOSINOPHILS ABSOLUTE AUTO 0.15 K/mm3 (0.00-0.68); EOSINOPHILS PERCENT AUTO 1 % (0-6); Hematocrit 26.5 % (37.0-53.0); Hemoglobin 9.1 g/dL (13.5-17.5); IMMATURE GRAN ABSOLUTE AUTO 0.09 K/mm3 (0.00-0.10); IMMATURE GRAN PERCENT AUTO 1 % (0-1); LYMPHOCYTES ABSOLUTE AUTO 2.71 K/mm3 (0.84-5.20); LYMPHOCYTES PERCENT AUTO 15 % (21-46); MONOCYTES ABSOLUTE AUTO 1.83 K/mm3 (0.16-1.47); MONOCYTES PERCENT AUTO 10 % (4-13); Mean Corpuscular HGB 28.7 pg (26.0-34.0); Mean Corpuscular HGB Conc 34.3 g/dL (31.5-36.5); Mean Corpuscular Volume 84 fL (80-100); Mean Platelet Volume 12.8 fL (9.1-12.4); NEUTROPHILS ABSOLUTE AUTO 12.86 K/mm3 (1.96-9.15); NEUTROPHILS PERCENT AUTO 73 % (41-73); Platelet Count 62 K/mm3 (150-400); RDW Coefficient Variation 15.7 % (11.7-14.2); RDW Standard Deviation 47.3 fL (35.1-46.3); Red Blood Cell Count 3.17 M/mm3 (4.30-5.90); White Blood Cell Count 17.68 K/mm3 (4.00-11.30)
[2023-02-04 06:56] LABS: Albumin, Blood 2.2 g/dL (3.4-5.0); Albumin/Globulin Ratio 0.7 (0.8-1.8); Bilirubin, Total 0.8 mg/dL (0.1-1.0); Bun/Creatinine Ratio 49.8 (12.0-20.0); Calcium, Blood 8.2 mg/dL (8.5-10.1); Creatinine, Blood 0.6 mg/dL (0.60-1.20); Potassium, Blood 3.5 mmol/L (3.5-5.5); Total Protein, Blood 5.2 g/dL (6.4-8.2)
[2023-02-04 12:34] LABS: Hematocrit 26.4 % (37.0-53.0); Hemoglobin 9.1 g/dL (13.5-17.5)
--- NOTE | 2023-02-04 17:46 | NUR ---
SHIFT SUMMARY PT CONTINUES TO REST QUIETLY IN BED. SPEECH IS MUMBLE. PT IS LABILE, NOT REDIRECTABLE WHEN AWAKE, RESPONSIVE TO NOXIOUS STIMULI. HR 80'S SINUS, BP STABLE, O2 AT 4L VIA NC. PICC LINE IN LATASHA. PRECEDEX INFUSING AT 0.7MCG/KG/HR, PROTONIX INFUSING AT 10MLS/HR, SANDOSTATIN INFUSING AT 50MCG/HR, LR INFUSING AT 125MLS/HR. PT INCONTINENT OF URINE, ATTENDS IN PLACE. NO BM THIS SHIFT. WILL CONTINUE TO MONITOR AND GIVE REPORT TO ONCOMING RN.
--- NOTE | 2023-02-04 19:54 | NUR ---
ASSESSMENT/ASSUMED CARE PT SLEEPING, WITHDRAWALS WITH PAINFUL STIMULI AND NT SUCTION DONE BY RT. LUNGS COARSE AND DECREASED IN THE BASES. O2 AT 4 LITERS VIA NC TO MOUTH. SPO2 GREATER THAN 90. RESP EVEN AND NONLABORED. HEART RATE REGULAR 90-100'S. BP STABLE. NO EDEMA. SCD'S ON BILAT LOWER EXT. BT+ HYPOACTIVE. PT NPO. PICC LINE TO RIGHT UPPER ARM. DRSG AND STAT LOCK CHANGED. SITE CLEAR, OUT 4 CM. PT INCONT OF URINE. ATTENDS AND DRY FLOW CHANGED. PT REPOSITIONED TO LEFT WITH HOB UP. BED ALARM ON. PRECEDEX AT 0.7 MCQ/KG/HR DECREASED TO 0.6 MCQ/KG/HR DUE TO SEDATION. PROTONIX GTT AT 10 ML/HR, SANDOSTATIN GTT AT 50 MCQ/HR, AND LR AT 125 ML/HR ALL VIA PICC. SKIN WARM AND DIAPHORETIC.
--- NOTE | 2023-02-04 23:52 | NUR ---
REASSESSMENT PT SLEEPING. OPENS EYES AND MOVING HAND WITH REPOSITION AND ORAL CARE. ATTENDS CD&I. PT NOT FOLLOWING INSTRUCTIONS. SKIN WARM AND DIAPHORETIC. PRECEDEX DOWN TO 0.5 MCQ/KG/HR. MED WITH ATIVAN 2 MG IV FOR ETOH W/D. BED ALARM ON. VSS. LUNGS CONT COARSE.
[2023-02-05] VITALS (48 sets, daily range): BP systolic 106–157; BP diastolic 68–99
[2023-02-05 03:45] LABS: BASOPHILS ABSOLUTE AUTO 0.04 K/mm3 (0.00-0.23); BASOPHILS PERCENT AUTO 0 % (0-2); EOSINOPHILS ABSOLUTE AUTO 0.17 K/mm3 (0.00-0.68); EOSINOPHILS PERCENT AUTO 2 % (0-6); Hematocrit 25.7 % (37.0-53.0); Hemoglobin 8.6 g/dL (13.5-17.5); IMMATURE GRAN ABSOLUTE AUTO 0.06 K/mm3 (0.00-0.10); IMMATURE GRAN PERCENT AUTO 1 % (0-1); LYMPHOCYTES ABSOLUTE AUTO 2.11 K/mm3 (0.84-5.20); LYMPHOCYTES PERCENT AUTO 19 % (21-46); MONOCYTES ABSOLUTE AUTO 1.15 K/mm3 (0.16-1.47); MONOCYTES PERCENT AUTO 10 % (4-13); Mean Corpuscular HGB 28.6 pg (26.0-34.0); Mean Corpuscular HGB Conc 33.5 g/dL (31.5-36.5); Mean Corpuscular Volume 85 fL (80-100); Mean Platelet Volume 12.3 fL (9.1-12.4); NEUTROPHILS ABSOLUTE AUTO 7.79 K/mm3 (1.96-9.15); NEUTROPHILS PERCENT AUTO 69 % (41-73); RDW Standard Deviation 49.4 fL (35.1-46.3); Red Blood Cell Count 3.01 M/mm3 (4.30-5.90); White Blood Cell Count 11.32 K/mm3 (4.00-11.30)
[2023-02-05 03:50] LABS: Platelet Count 47 K/mm3 (150-400)
[2023-02-05 04:06] LABS: Bun/Creatinine Ratio 25.8 (12.0-20.0); Calcium, Blood 8.5 mg/dL (8.5-10.1); Creatinine, Blood 0.54 mg/dL (0.60-1.20); Potassium, Blood 3.2 mmol/L (3.5-5.5)
--- NOTE | 2023-02-05 05:59 | NUR ---
SHIFT SUMMARY PT RESTING QUIET AT THIS TIME. TITRATED PRECEDEX DOWN FROM 0.7 MCQ/KG/HR TO 0.5 MCQ/KG/HR DUE TO SEDATION. MED ONCE DURING THE NIGHT WITH ATIVAN 2 MG FOR REACHING FOR LINES. LUNGS COARSE ON 4 LITERS VIA NC. RT DID NT SUCTION ONCE. TURNING PT Q2HR. PT INCONT OF URINE TWICE DURING THE NIGHT. BED ALARM ON FOR SAFETY. VSS. PICC DRSG CHANGED DUE TO BLEEDING. PLT DOWN TO 47, REPORTED TO DR CLARK. POTASSIUM INFUSING DUE TO K LEVEL 3.2. PT NPO. BLOOD GLUCOSE DONE Q6HR AND COVERED WITH SLIDING SCALE INSULIN. REPORT TO ON COMING NURSE
[2023-02-05 08:26] LABS: Hematocrit 26.7 % (37.0-53.0); Hemoglobin 8.9 g/dL (13.5-17.5)
--- NOTE | 2023-02-05 09:27 | NUR ---
ASSUMED CARE BEDSIDE REPORT FROM SISSY VEGA AT 0700. PT LAYING IN BED. PT RESPONSIVE TO PAINFUL STIMULI. DOES NOT FOLLOW DIRECTIONS. DOES NOT MAKE EYE CONTACT. SPONT OPENS EYES. JETER. REPOSITIONS SELF IN BED. PRECEDEX GTT INFUSING, TITRATING DOWN. LUNGS COARSE, OCCASIONAL MOIST COUGH. 2L VIA NC. ABD DISTENDED, FIRM, NON TENDER. BT X 4. ATTENDS IN PLACE. PICC TO RUE, DRESSING C/D/I. VSS. WILL CONTINUE TO MONITOR.
--- NOTE | 2023-02-05 18:09 | NUR ---
SHIFT SUMMARY PT STATUS CHANGED TO PCU THIS SHIFT. PT MAKES NOISES WHEN NAME IS CALLED, NO WORDS. DOES NOT FOLLOW COMMANDS. DOES NOT MAKE EYE CONTACT. OPENS EYES SPONT. DOES NOT TRACK STAFF. AMMONIA LEVELS HIGH, LACTULOSE ENEMA GIVEN VIA RECTAL TUBE. HAS SINCE BECOME DISLODGED, NO LONGER IN PLACE. DARK BROWN LIQUID STOOL OUT. PRECEDEX TITRATED OFF AND D/C'D. LUNGS COARSE, RA, O2 SATS >95%. SR, RATE 70-90'S. BP STABLE. ABD SOFT, ROUND, NON TENDER. BT X 4. INCONTINENT OF URINE, ATTENDS IN PLACE. MAEW. WILL CONTINUE TO MONITOR UNTIL REPORT TO ONCOMING NURSE.
--- NOTE | 2023-02-05 19:19 | NUR ---
ASSUMED CARE. PT AWAKE AND RESTLESS, TURNING FROM SIDE TO SIDE, ATTEMPTING TO GET UP. BED ALARM IS ON. DOES NOT FOLLOW COMMANDS OR TRACKS. DID SAY THE "F" WORD WHEN TOLD TO LAY BACK DOWN, BUT DOES NOT HAVE ANY OTHER RESPONSES. WEAK, NOT ABLE TO GET TO SITTING POSITION. LR INFUSING AT 125ML/HR. SANDOASTATIN AT 25ML/HR. TACHY IN THE 100'S. LUNGS CLEAR ON RA. OCCATIONAL COUGH, SUCTIONED SCANT RED SECRETIONS. ATTENDS DRY. RASH NOTED TO BACK. SEE ASSESSMENT FOR FURTHER DETAILS.
--- NOTE | 2023-02-05 21:52 | NUR ---
LACTOLOSE GIVEN VIA RECTAL TUBE. HE WAS ABLE TO HOLD FOR 25 MIN BEFORE GRUNTING. RETURN IS PINK WITH SMALL FLAKES OF COFFEE GROUNDS.
[2023-02-06] VITALS (19 sets, daily range): BP systolic 117–154; BP diastolic 61–105
--- NOTE | 2023-02-06 00:40 | NUR ---
PT RESTLESS, TRYING TO CLIMB OUT OF BED. DIAPHORETIC, CONFUSED. MED WITH ATIVAN 2MG
[2023-02-06 04:31] LABS: Hematocrit 26.1 % (37.0-53.0); Hemoglobin 8.6 g/dL (13.5-17.5); Mean Corpuscular HGB 28.8 pg (26.0-34.0); Mean Corpuscular Volume 87 fL (80-100); Mean Platelet Volume 11.5 fL (9.1-12.4); NRBC ABSOLUTE 0.04 K/mm3 (0.00-0.02); NRBC Auto 0.4 /100 WBC (0.0-0.2); Platelet Count 51 K/mm3 (150-400); RDW Standard Deviation 49.2 fL (35.1-46.3); Red Blood Cell Count 2.99 M/mm3 (4.30-5.90); White Blood Cell Count 10.02 K/mm3 (4.00-11.30)
[2023-02-06 04:48] LABS: Bun/Creatinine Ratio 13.6 (12.0-20.0); Calcium, Blood 8.3 mg/dL (8.5-10.1); Creatinine, Blood 0.51 mg/dL (0.60-1.20); Potassium, Blood 2.7 mmol/L (3.5-5.5)
--- NOTE | 2023-02-06 06:28 | NUR ---
SHIFT SUMMARY: PT AOX1, WILL FOLLOW DIRECTIONS MOST OF THE TIME. DOES NOT TRACK. ONLY HAS ANSWERED A HAND FULL OF THE TIME, USING ONE WORD ANSWERS. LS CLEAR, CONTINUES TO COUGH UP SMALL AMOUNT OF RED SECRETIONS. ON RA. SINUS WITH A FEW EPISODES OF AFIB AND BRADYCARDIA. BP STABLE. BT HYPERACTIVE, DISTENDED. RECTAL TUBE PLACED, LITTLE OVER 1L OUTPUT MINUS THE LACTOLOSE DOSAGE. DARK MARROON WITH COFFEE GROUNDS. INCONTIENT OF URINE ATTENDS IN PLACE. LR AND SANDOSTATIN GTT CONTINUE. POTASSIUM LOW THIS AM, AWAITING ORDERS FROM MD. BED ALARM IS ON.
--- NOTE | 2023-02-06 09:43 | NUR ---
ASSUMED CARE BEDSIDE REPORT FROM OSORIO VEGA AT 0700. PT RESTING IN BED. RESTLESS. FREQUENTLY REPOSITIONING SELF. OPENS EYES SPONT. DOES NOT MAKE EYE CONTACT, DOES NOT FOLLOW COMMANDS. WHEN HIS NAME IS STATED PT SAYS "WHAT" ALSO SAYS "GOD DAMN IT." UNABLE TO REDIRECT. MAEW. LUNGS CLEAR. SR, RATE 60-70'S ON MONITOR. BP STABLE. ABD ROUND, SOFT, NON TENDER. BT X 4. RECTAL TUBE DISLODGED. PICC TO RUE, DRESSING C/D/I. WILL CONTINUE TO MONITOR.
--- NOTE | 2023-02-06 13:44 | NUR ---
TRANSFER TO PCU NO ACUTE CHANGES. PT OCCASIONALLY YELLS GOD DAMN, OR WHAT. DOES NOT FOLLOW COMMANDS. DIFFICULT TO REDIRECT. RESTLESS IN BED, PULLING ON BEDRAILS, UP ON KNEES, PLACED ARCHANA FOR PT SAFETY. CARBON DIOXIDE OPERATOR AWARE. ABLE TO TRANSITION TO PO LACTULOSE. INCONTINENT OF URINE, ATTENDS IN PLACE. REPORT TO PALMER VEGA. TRANSFERRED TO PCU 19.
--- NOTE | 2023-02-06 17:21 | NUR ---
SHIFT SUMMARY PT ARRIVED TO PCU 19 FROM ICU @ 1335. PT A/O TO SELF ONLY. PT ABLE TO GIVE ME ACCURATE BIRTHDATE AND ANSWER SOME YES OR NO QUESTIONS APPROPRIATELY. PT OFTEN DOES NOT RESPOND TO QUESTIONS AND HAS A BLANK STARE AT TIMES. PT CAME OVER FROM ICU IN A ARCHANA VEST TO PREVENT FALL. PT REPEATEDLY TRYING TO GET OUT OF BED. PT REPOSITIONED Q2H. PT DOES NOT ANSWER WHEN THIS RN ASKED ABOUT COMFORT OR PAIN. PT SINUS RHYTHM ON TELE, WITH A RATE IN THE 60-70'S. PT SPO2 >92% ON RA. NO RESPIRATORY DISTRESS NOTED. RESPIRATIONS EVEN AND UNLABORED. BP STABLE. PT RECEIVING PO LACTULOSE. NO VOID OR BM NOTED SINCE PT ARRIVED. HEAD OF ENGLISH ATTEMPTED TO ASSIST PT WITH DINNER AND HE WOULD NOT OPEN HIS MOUTH OR TURN HIS HEAD WHEN SHE ATTEMPTED. PT HAS OCTREOTIDE AND LR INFUSING. PT IS MILDLY DIAPHORETIC AND RESTLESS. UNKNOWN WHETHER PT IS WITHDRAWING OR WHEN HIS LAST DRINK WAS. NO TREMORS WERE FELT BY THIS RN. PRN ATIVAN GIVEN THIS AFTERNOON FOR AGITATION AND RESLTESSNESS. PHONE CALL WAS MADE TO DR ROBLEDO REGARDING PT POTASSIUM OF 3.1. ORDER FOR 40MEQ OF POTASSIUM. PT CHEM BG WAS ALSO CHANGED TO ACHS DUE TO PT NO LONGER BEING NPO. WILL CONTINUE TO CARE FOR PT AND REPORT TO ONCOMING RN.
[2023-02-07 00:55] VITALS: BP 147/84
[2023-02-07 04:15] VITALS: BP 153/89
--- NOTE | 2023-02-07 05:02 | NUR ---
Assumed care of pt at 1900, patient able to state his name but cannot/will not answer other orientation questions. Patient is weak t/o. Has not slept this entire shift and continues to move around to try to get out of bed and attempt to get out of christiano. SR with PAC on tele. VSS. Urinary incontinence, attends in place, urine is yellow. Skin is clammy, bed bath given this shift. R fem site C/D/I and unchanged. Attempts at getting patient to eat were unsuccessful. Patient required a PCT to have direct eyes on patient for patient safety most of the shift. Will report to dayshift RN.
[2023-02-07 05:07] LABS: BASOPHILS ABSOLUTE AUTO 0.06 K/mm3 (0.00-0.23); BASOPHILS PERCENT AUTO 1 % (0-2); EOSINOPHILS ABSOLUTE AUTO 0.44 K/mm3 (0.00-0.68); EOSINOPHILS PERCENT AUTO 5 % (0-6); Hematocrit 26.8 % (37.0-53.0); Hemoglobin 8.8 g/dL (13.5-17.5); IMMATURE GRAN ABSOLUTE AUTO 0.09 K/mm3 (0.00-0.10); IMMATURE GRAN PERCENT AUTO 1 % (0-1); LYMPHOCYTES PERCENT AUTO 24 % (21-46); MONOCYTES ABSOLUTE AUTO 0.88 K/mm3 (0.16-1.47); MONOCYTES PERCENT AUTO 11 % (4-13); Mean Corpuscular HGB 28.4 pg (26.0-34.0); Mean Corpuscular HGB Conc 32.8 g/dL (31.5-36.5); Mean Corpuscular Volume 87 fL (80-100); Mean Platelet Volume 12.1 fL (9.1-12.4); NEUTROPHILS ABSOLUTE AUTO 4.85 K/mm3 (1.96-9.15); NEUTROPHILS PERCENT AUTO 58 % (41-73); Platelet Count 58 K/mm3 (150-400); RDW Coefficient Variation 16.8 % (11.7-14.2); RDW Standard Deviation 48.5 fL (35.1-46.3); White Blood Cell Count 8.32 K/mm3 (4.00-11.30)
[2023-02-07 05:33] LABS: Albumin, Blood 2.7 g/dL (3.4-5.0); Anion Gap 4 mmol/L (6-16); Blood Urea Nitrogen 6 mg/dL (8-24); Bun/Creatinine Ratio 11.2 (12.0-20.0); CO2, Blood 24 mmol/L (21-32); Calcium, Blood 7.9 mg/dL (8.5-10.1); Chloride, Blood 112 mmol/L (98-108); Creatinine, Blood 0.54 mg/dL (0.60-1.20); Glomerular Filtration Rate 128 (60-); Glucose, Blood 134 mg/dL (70-99); Phosphorus, Blood 3.2 mg/dL (2.5-4.9); Potassium, Blood 2.9 mmol/L (3.5-5.5); Sodium, Blood 140 mmol/L (136-145)
[2023-02-07 13:27] VITALS: BP 154/96
[2023-02-07] MEDS ORDERED: B-1100 M1 PO (16:16)
[2023-02-07] MEDS ORDERED: METF500 PO (16:16)
[2023-02-07] MEDS ORDERED: PANT40 PO (16:18)
[2023-02-07] MEDS ORDERED: PROP10 PO (16:19)
[2023-02-07] MEDS ORDERED: GABA800 PO (16:22)
[2023-02-07] MEDS ORDERED: DULO60 PO (16:23)
[2023-02-07] MEDS ORDERED: Naltrexone HCl50 MG PO (16:25)
[2023-02-07 16:48] VITALS: BP 136/116
--- NOTE | 2023-02-07 18:11 | NUR ---
END OF SHIFT: PATIENT IS ONLY ALERT TO SELF, FIGETING, SITTING UPRIGHT TO GET OUT OF BED, RESTRAINTS IN USE, SITTER IN THE ROOM. EDENTULOUS SWITCHED TO [facility] SOFT THIS PM. CONTINUE TO USE ATIVAN FOR AGITATION. PATIENT STILL SR NO ACTIVE SIGNS OF CHEST PAIN/PRESSURE, DOES NOT APPPEAR TO BE SOB AND SPOT SPO2 >94%. LUNGS SOUND CLEAR. NOT FLUID OVERLOADED, EVENTS: cL Mg 1.1 CALL TO DEVANG, TELEPHONE ORDER FOR Mg NO ROMEL WILL ROMEL WITH AM LABS AT THIS TIME. PATIENT ALSO RECIEVED 80 MeQ OF k+ FROM THIS ASSURANCE ANALYST. MED REC UPDATED PROVIDER INFORMED. PATIENT OVERALL IMPROVING. BM'S 2 LARGE DARKER STOOL LIQUID. AND A SINGLE BAND OBSERVED NO CONTINUED SIGNS OF BM AT THIS TIME. WILL CONTINUE TO MONITOR AT THIS TIME.
--- NOTE | 2023-02-07 19:15 | NUR ---
ASSUMED CARE OF PT @1900. PT RESTING IN BED W/ARCHANA IN PLACE. RESTLESS AND CONSTANTLY MOVING. WILL ACKNOWLEDGE STAFF WHEN HE IS ADDRESSED BUT WILL NOT ANSWER QUESTIONS. TRYING ON OCCASION TO PULL SELF OVER SIDE RAIL. PICC LINE IN LATASHA INFUSING LRS 100MLS/HR, OCREOTIDE 50MCG/HR, TKO 10MLS/HR.
[2023-02-07 19:26] VITALS: BP 159/93
--- NOTE | 2023-02-07 20:20 | NUR ---
UPDATE SW DR JACKSON RE HOME MEDS. OK TO GIVE BUSPAR AND OLANZAPINE TONIGHT.
[2023-02-07 23:55] VITALS: BP 157/105
[2023-02-08 04:00] VITALS: BP 137/82
[2023-02-08 04:05] LABS: BASOPHILS ABSOLUTE AUTO 0.04 K/mm3 (0.00-0.23); BASOPHILS PERCENT AUTO 1 % (0-2); EOSINOPHILS PERCENT AUTO 6 % (0-6); Hematocrit 27.4 % (37.0-53.0); Hemoglobin 8.9 g/dL (13.5-17.5); IMMATURE GRAN ABSOLUTE AUTO 0.06 K/mm3 (0.00-0.10); IMMATURE GRAN PERCENT AUTO 1 % (0-1); LYMPHOCYTES PERCENT AUTO 24 % (21-46); MONOCYTES ABSOLUTE AUTO 0.75 K/mm3 (0.16-1.47); MONOCYTES PERCENT AUTO 11 % (4-13); Mean Corpuscular HGB 28.4 pg (26.0-34.0); Mean Corpuscular HGB Conc 32.5 g/dL (31.5-36.5); Mean Corpuscular Volume 88 fL (80-100); Mean Platelet Volume 11.8 fL (9.1-12.4); NEUTROPHILS ABSOLUTE AUTO 3.94 K/mm3 (1.96-9.15); NEUTROPHILS PERCENT AUTO 58 % (41-73); NRBC ABSOLUTE 0.02 K/mm3 (0.00-0.02); NRBC Auto 0.3 /100 WBC (0.0-0.2); Platelet Count 54 K/mm3 (150-400); RDW Coefficient Variation 17.3 % (11.7-14.2); RDW Standard Deviation 49.4 fL (35.1-46.3); Red Blood Cell Count 3.13 M/mm3 (4.30-5.90); White Blood Cell Count 6.79 K/mm3 (4.00-11.30)
[2023-02-08 04:27] LABS: Albumin, Blood 2.6 g/dL (3.4-5.0); Anion Gap 3 mmol/L (6-16); Blood Urea Nitrogen 4 mg/dL (8-24); Bun/Creatinine Ratio 7.6 (12.0-20.0); CO2, Blood 27 mmol/L (21-32); Calcium, Blood 7.6 mg/dL (8.5-10.1); Chloride, Blood 110 mmol/L (98-108); Creatinine, Blood 0.52 mg/dL (0.60-1.20); Glomerular Filtration Rate 130 (60-); Glucose, Blood 113 mg/dL (70-99); Phosphorus, Blood 3.4 mg/dL (2.5-4.9); Potassium, Blood 3.1 mmol/L (3.5-5.5); Sodium, Blood 140 mmol/L (136-145)
[2023-02-08 05:08] LABS: Magnesium, Blood 1.5 mg/dL (1.6-2.4)
--- NOTE | 2023-02-08 05:20 | NUR ---
UPDATE SW RESIDENT SHREVES RE LOW POTASSIUM AND NEED FOR REPEAT MAG LEVEL. PER SHREVES, RECHECK MAG AND BNP WELL REPLACE KCL.
--- NOTE | 2023-02-08 05:22 | NUR ---
SUMMARY NEURO/PSYCH/MOBILITY: 1:1 NURSE, THIS RN, IN PT ROOM ALL SHIFT. PT WAS RESTLESS AND AGITATED FIRST PART OF THE SHIFT. TRYING MULTIPLE TIMES TO GET OUT OF BED. REDIRECTABLE FOR ONLY SHORT PERIODS OF TIME AND WOULD NOT ANSWER QUESTIONS. CIWA 12 AT BEGINNING OF SHIFT. MEDICATED PER EMAR. PT WAS ABLE TO REST EARLY TO LATE MORNING. MENTATION IMPROVED AND HE WAS ANSWERING SOME QUESTIONS AND ASKED FOR WATER. STATED MULTIPLE TIMES THAT HIS ARCHANA WAS "A PAIN IN HIS ASS." ASKED TO GET OUT OF BED MULTIPLE TIMES. REDIRECTED AND REORIENTED. WHEN THIS RN ORIENTED HIM TO PLACE HE STATED "HE KNEW." COULD NOT REMEMBER WHAT HAPPENED OR WHY HE WAS HOSPITALIZED. ASKED FOR BREAKFAST. PT IS ABLE TO MAKE SIGNIFICANT AND FREQUENT CHANGES TO BODY POSITION. AFEBRILE. PERRL. RESP: RR <20, SPO2 >94% ON RA. NO SOB. CARDIAC: CONTINUOUS CARDIAC MONITORING. NSR 70-90'S, SBP STABLE, MAP >65. NO COMPLAINTS OF CHEST PAIN. GI: PT HAD TWO VERY LARGE LOOSE/LIQUID BLACK TARRY STOOLS THIS SHIFT. ASKED FOR WATER AND BREAKFAST. DENIES NAUSEA. : PT IS INCONTINENT OF URINE AND SOAKING THROUGH MULTIPLE ATTENDS AND LINENS. UNABLE TO MAKE NEEDS KNOWN DESPITE BEING ASKED FREQUENTLY IF HE NEEDS TO VOID. URINE IS LIGHT YELLOW. SKIN: ASSESSMENT REMAINS UNCHANGED. IV ACCESS: PICC LATASHA PATENT AND INFUSING. DRAWS BLOOD BACK.
[2023-02-08 07:32] VITALS: BP 150/101
[2023-02-08 07:34] VITALS: BP 150/101
[2023-02-08 12:16] VITALS: BP 142/94
[2023-02-08 16:14] VITALS: BP 138/98
--- NOTE | 2023-02-08 16:44 | NUR ---
END OF SHIFT: PATIENT RECIEVED 1G OF Mg, SOME MORE K+. ORIENTED IS TO SELF, PERSON, AND CAN PARTIALLY MAKE NEEDS KNOWN. PATIENT IS STILL ATTEMPTING TO GET OUT OF BED AND AT THIS TIME WOULD BE EXTREMELY UNSAFE. SITTER IN THE ROOM. Q 2 TURNS AND PATIENT HAS BEEN COOPERATIVE MOST OF THE TIME. GREAT OUTPUT MOST IV MEDICATIONS DC'D PLEASE SEE ORDERS. DENIES CHEST PAIN, DOES ENDORSE SOME MINOR LLQ PAIN RESOLVED WITH REPOSITIONING. RA 94% OR BETTER. UPDATE TO MOTHER, MORE HOME MEDS STARTED WITH MUCH IMPROVMENT TO MENTATION. WILL CONTINUE TO MONITOR UNTIL SHIFT CHANGE. NO CONCERNS FROM THIS RN AT THIS TIME.
--- NOTE | 2023-02-08 18:37 | NUR ---
PATIENT ENDORSING OCCASSIONAL DOUBLE VISION, HE IN THE 80'S 152/95 (113). EVALUATED NEURO ONLY SIGNIFICANT CHANGES THAT WERE NOT PRESENT ON EARLIER WAS THE LEFT EYE PERIPHERAL VISION IS NOT STRONG RIGHT EYE PERIPHERAL. PATIENT ALSO ENDORSED OCCASSIONAL DIZZINESS. CALL TO PROVIDER. CONTINUE TO MONITOR AND HOLD ZYPREXA IF ANY OTHER NEGATIVE NEURO CHANGES.
[2023-02-08 19:15] VITALS: BP 152/95
[2023-02-09 05:07] LABS: BASOPHILS ABSOLUTE AUTO 0.07 K/mm3 (0.00-0.23); BASOPHILS PERCENT AUTO 1 % (0-2); EOSINOPHILS ABSOLUTE AUTO 0.51 K/mm3 (0.00-0.68); EOSINOPHILS PERCENT AUTO 6 % (0-6); Hematocrit 29.1 % (37.0-53.0); Hemoglobin 9.4 g/dL (13.5-17.5); IMMATURE GRAN ABSOLUTE AUTO 0.07 K/mm3 (0.00-0.10); IMMATURE GRAN PERCENT AUTO 1 % (0-1); LYMPHOCYTES ABSOLUTE AUTO 2.35 K/mm3 (0.84-5.20); LYMPHOCYTES PERCENT AUTO 28 % (21-46); MONOCYTES ABSOLUTE AUTO 1.02 K/mm3 (0.16-1.47); MONOCYTES PERCENT AUTO 12 % (4-13); Mean Corpuscular HGB 28.5 pg (26.0-34.0); Mean Corpuscular HGB Conc 32.3 g/dL (31.5-36.5); Mean Corpuscular Volume 88 fL (80-100); Mean Platelet Volume 10.7 fL (9.1-12.4); NEUTROPHILS ABSOLUTE AUTO 4.46 K/mm3 (1.96-9.15); NEUTROPHILS PERCENT AUTO 53 % (41-73); NRBC ABSOLUTE 0.02 K/mm3 (0.00-0.02); NRBC Auto 0.2 /100 WBC (0.0-0.2); Platelet Count 66 K/mm3 (150-400); RDW Coefficient Variation 17.6 % (11.7-14.2); White Blood Cell Count 8.48 K/mm3 (4.00-11.30)
[2023-02-09 05:36] LABS: Albumin, Blood 2.6 g/dL (3.4-5.0); Anion Gap 1 mmol/L (6-16); Blood Urea Nitrogen 5 mg/dL (8-24); Bun/Creatinine Ratio 7.8 (12.0-20.0); CO2, Blood 29 mmol/L (21-32); Calcium, Blood 8.4 mg/dL (8.5-10.1); Chloride, Blood 109 mmol/L (98-108); Creatinine, Blood 0.64 mg/dL (0.60-1.20); Glomerular Filtration Rate 122 (60-); Glucose, Blood 126 mg/dL (70-99); Magnesium, Blood 1.6 mg/dL (1.6-2.4); Phosphorus, Blood 4.1 mg/dL (2.5-4.9); Potassium, Blood 3.3 mmol/L (3.5-5.5); Sodium, Blood 139 mmol/L (136-145)
--- NOTE | 2023-02-09 05:38 | NUR ---
TRIED TO CALL DR QURESHI WITH MAG LEVEL RESULTS AT 1.6. ORDER FOR MAG IS BEING HELD AT THIS TIME D/T NURSING JUDGMENT UNTIL CONFIRMATION THAT WOULD LIKE TO INFUSE STILL.
--- NOTE | 2023-02-09 05:40 | NUR ---
END OF SHIFT SUMMARY PT COOPERATIVE WITH CARE. ANSWERS YES AND NO QUESTIONS. COMPLAINT THAT HE WANTS TO GO HOME. NO OUTBURST OF BEHAVIORS THIS SHIFT. RESP= >92% RA. LSCBT. CARDIAC-SR WITH PAC INTERMITENT. HR 60'S-70'S. GI,- BM THIS AM SHOWS DARK BROWN STOOL. URINATING IN URINAL. SMALL INCONTINENT EPISODES THROUGHOUT SHIFT. INTEG- NO NEW CHANGES. VEST ARCHANA INPLACE. LOOSENED SO THAT PT COULD ROLL ONTO SIDE TO SLEEP. WILL CONTINUE TO MONITOR PT UNTIL REPORT GIVEN TO AM RN.
[2023-02-09 07:28] VITALS: BP 144/91
[2023-02-09 16:28] VITALS: BP 129/86
--- NOTE | 2023-02-09 17:56 | NUR ---
SHIFT SUMMARY; ASSUMED CARE AT 0700. A/A/OX3. ARCHANA DIAZ DC'D AFTER SHIFT CHANGE, CALM AND REDIRECTABLE. SITTER IN ROOM. ORIENTED TO SELF, PLACE, SITUATION. STATES HAD NOT DRANK ALCOHOL IN 2 MONTHS. VSS, UPDATED ON PLANNING FOR DC TOMORROW BY DR. ROBLEDO. PT AGREES TO PLAN. AMBULATES TO RESTROOM WITH SBA, EATS MEALS WITHOUT DIFFICULTY. DIARRHEA TODAY MULTIPLE TIMES, AFTERNOON LACTULOSE HELD. SITTER RELEASED IN AFTERNOON DUE TO PT AGREEING TO USE CALL LIGHT. BED ALARM SET, WILL CONTINUE TO MONITOR AND TREAT UNTIL CHANGE OF SHIFT.
[2023-02-09 20:47] VITALS: BP 147/91
[2023-02-10 04:56] LABS: BASOPHILS ABSOLUTE AUTO 0.07 K/mm3 (0.00-0.23); BASOPHILS PERCENT AUTO 1 % (0-2); EOSINOPHILS ABSOLUTE AUTO 0.43 K/mm3 (0.00-0.68); EOSINOPHILS PERCENT AUTO 4 % (0-6); Hematocrit 31.2 % (37.0-53.0); IMMATURE GRAN ABSOLUTE AUTO 0.12 K/mm3 (0.00-0.10); IMMATURE GRAN PERCENT AUTO 1 % (0-1); LYMPHOCYTES ABSOLUTE AUTO 2.66 K/mm3 (0.84-5.20); LYMPHOCYTES PERCENT AUTO 26 % (21-46); MONOCYTES ABSOLUTE AUTO 1.06 K/mm3 (0.16-1.47); MONOCYTES PERCENT AUTO 10 % (4-13); Mean Corpuscular HGB Conc 32.1 g/dL (31.5-36.5); Mean Corpuscular Volume 87 fL (80-100); NEUTROPHILS ABSOLUTE AUTO 5.93 K/mm3 (1.96-9.15); NEUTROPHILS PERCENT AUTO 58 % (41-73); Platelet Count 89 K/mm3 (150-400); RDW Coefficient Variation 17.2 % (11.7-14.2); RDW Standard Deviation 52.8 fL (35.1-46.3); Red Blood Cell Count 3.57 M/mm3 (4.30-5.90); White Blood Cell Count 10.27 K/mm3 (4.00-11.30)
[2023-02-10 05:13] LABS: Albumin, Blood 2.8 g/dL (3.4-5.0); Anion Gap 2 mmol/L (6-16); Blood Urea Nitrogen 5 mg/dL (8-24); Bun/Creatinine Ratio 8.8 (12.0-20.0); CO2, Blood 27 mmol/L (21-32); Calcium, Blood 8.4 mg/dL (8.5-10.1); Chloride, Blood 109 mmol/L (98-108); Creatinine, Blood 0.57 mg/dL (0.60-1.20); Glomerular Filtration Rate 126 (60-); Glucose, Blood 131 mg/dL (70-99); Phosphorus, Blood 4.1 mg/dL (2.5-4.9); Potassium, Blood 3.4 mmol/L (3.5-5.5); Sodium, Blood 138 mmol/L (136-145)
--- NOTE | 2023-02-10 05:38 | NUR ---
SHIFT SUMMARY A/OX3, FORGETFUL, SETS BED ALARM OFF WHEN ATTEMPTING TO GET UP TO BATHROOM. EASILY REDIRECTABLE. DENIES PAIN OR SOB. PICC TO LATASHA. SPO2 >92 % ON RA. VSS, NO ACUTE CHANGES AT THIS TIME. BED IN LOWEST POSITION WITH CALL LIGHT IN REACH. WILL CONTINUE TO MONITOR AND REPORT TO ONCOMING RN.
[2023-02-10 05:40] VITALS: BP 121/87
[2023-02-10 07:35] VITALS: BP 129/81
[2023-02-10 07:41] VITALS: BP 129/81
[2023-02-10] MEDS ORDERED: LACT10SY PO (10:39)
[2023-02-10] MEDS ORDERED: Nicoderm Cq1 EAC1 TOP (10:39)
[2023-02-10] MEDS ORDERED: MAGNESIUM OXID500 MG PO (10:39)
[2023-02-10] MEDS ORDERED: POTCHL20ER PO (10:40)
== END 2023-02-10 15:17 | disposition home or self-care (01) | DRG 432 ==
LOC: ICUW 01:59 → PCU 05:40 → ICUE 05:40 → PCU 02-06 13:37
PROVIDERS: Family Medicine; Internal Medicine; Internal Medicine Critical Care Medicine; Internal Medicine Gastroenterology; ADMIT Internal Medicine
PROC: 4A033R1 Measurement of Arterial Saturation, Peripheral, Percutaneous Approach (ICD-10-PCS; 2023-02-03)
PROC: 06L38CZ Occlusion of Esophageal Vein with Extraluminal Device, Via Natural or Artificial Opening Endoscopic (ICD-10-PCS; 2023-02-03)
PROC: HZ2ZZZZ Detoxification Services for Substance Abuse Treatment (ICD-10-PCS; 2023-02-03)
PROC: 5A1935Z Respiratory Ventilation, Less than 24 Consecutive Hours (ICD-10-PCS; principal; 2023-02-03 07:15)
DX: K70.30 Alcoholic cirrhosis of liver without ascites (principal); I85.11 Secondary esophageal varices with bleeding; R57.8 Other shock; J96.01 Acute respiratory failure with hypoxia; K76.6 Portal hypertension; E87.20 Acidosis, unspecified; D62 Acute posthemorrhagic anemia; F10.231 Alcohol dependence with withdrawal delirium; R65.10 Systemic inflammatory response syndrome (SIRS) of non-infectious origin without acute organ dysfunction; I10 Essential (primary) hypertension; E83.51 Hypocalcemia; D69.59 Other secondary thrombocytopenia; E87.6 Hypokalemia; E83.42 Hypomagnesemia; K76.82 Hepatic encephalopathy; E88.09 Other disorders of plasma-protein metabolism, not elsewhere classified; E03.9 Hypothyroidism, unspecified; E11.9 Type 2 diabetes mellitus without complications; F20.9 Schizophrenia, unspecified; F17.210 Nicotine dependence, cigarettes, uncomplicated; Z79.2 Long term (current) use of antibiotics; Z79.890 Hormone replacement therapy; Z79.899 Other long term (current) drug therapy
CPT/HCPCS: 31720; 36415; 36569; 36600; 71045; 80048; 80053; 80069; 82140; 82310; 82330; 82803; 82947; 83605; 83735; 83880; 84132; 85014; 85018; 85025; 85027; 85049; 85384; 85610; 85730; 86850; 86900; 86901; 86923; 87040; 94002; 94760; 94762; 97161; 97166; 97530; 97535; A9270; C1751; C9113; J0171; J0696; J1430; J1815; J2060; J2250; J2354; J2704; J3010; J3411; J3415; J3475; J3480; J7030; J7040; J7050; J7120